=== PATIENT | male | born 1950 | race Caucasian/White ===

== ENCOUNTER → 2020-12-17 | Outpatient (CLI) | payer MEDICARE | END | disposition home or self-care (01) | LOC: RAD 10:08 | PROVIDERS: ATTEND Internal Medicine Gastroenterology | DX: K76.0 Fatty (change of) liver, not elsewhere classified (principal); N28.1 Cyst of kidney, acquired; K92.1 Melena; K59.00 Constipation, unspecified; Z72.89 Other problems related to lifestyle | CPT/HCPCS: 76700 ==

== ENCOUNTER 2021-02-13 06:44 | Day surgery (SDC) | payer MEDICARE ==
[~2021-02-13] VITALS: Ht 180.3 cm; Wt 93.3 kg
[2021-02-13] MEDS ORDERED: LITH300T3 PO (07:48)
[2021-02-13] MEDS ORDERED: PARO20TA98 PO (07:48)
[2021-02-13] MEDS ORDERED: MELA5TAB14 PO (07:48)
[2021-02-13] MEDS ORDERED: CLON-364 PO (07:48)
[2021-02-13] MEDS ORDERED: GEMF-31 PO (07:48)
[2021-02-13] MEDS ORDERED: OMEP-110 PO (07:48)
[2021-02-13] MEDS ORDERED: CHLORHEXIDINE 15 ML UDC ONE (07:50)
[2021-02-13] MEDS ORDERED: LACTATED RINGERS 1,000 ML IV SCH (08:00)
[2021-02-13] MEDS ORDERED: CHLORHEXIDINE 15 ML UDC PO ONE (08:00)
[2021-02-13 08:08] VITALS: BP 146/83
[2021-02-13] MEDS ORDERED: PROPOFOL 10 MG/ML, 20ML ONE (09:36)
[2021-02-13] MEDS ORDERED: hydrALAzine 20 MG/ML, 1ML IV PRN (10:00)
[2021-02-13] MEDS ORDERED: ACETAMINOPHEN 325 MG TABLET PO PRN (10:00)
[2021-02-13] MEDS ORDERED: LORazepam 2 MG/ML, 1ML IVPush PRN (10:00)
[2021-02-13] MEDS ORDERED: OXYcodone 5 MG/5 ML ORAL.SOL UDC PO PRN (10:00)
[2021-02-13] MEDS ORDERED: PROMETHAZINE 25 MG SUPP PR PRN (10:00)
[2021-02-13] MEDS ORDERED: METHOCARBAMOL 1,000 MG in DEXTROSE 5% 100 ML IV PRN (10:00)
[2021-02-13] MEDS ORDERED: PROMETHAZINE 25 MG/ML, 1ML IVPush PRN (10:00)
[2021-02-13] MEDS ORDERED: LABETALOL 5MG/ML, 20ML IV PRN (10:00)
[2021-02-13] MEDS ORDERED: ONDANSETRON 2MG/ML, 2ML IVPush PRN (10:00)
[2021-02-13] MEDS ORDERED: FENTANYL PF 100 MCG/2ML IV PRN (10:00)
== END 2021-02-13 12:20 | disposition home or self-care (01) ==
LOC: OUT 06:44
PROVIDERS: ATTEND Internal Medicine Gastroenterology
DX: K55.21 Angiodysplasia of colon with hemorrhage (principal); K63.5 Polyp of colon; Q43.8 Other specified congenital malformations of intestine; Z20.822 Contact with and (suspected) exposure to COVID-19; Z79.899 Other long term (current) drug therapy; Z85.46 Personal history of malignant neoplasm of prostate
CPT/HCPCS: 45382; 45385; 87635; 88305; 93005; J2704; J7120